=== PATIENT | female | born 1930 | race Two or more races ===

== ENCOUNTER 2018-03-26 14:37 | Outpatient (CLI) | payer OTHER ==
[~2018-03-26 14:37] MED LIST: DICLOFENAC SODI50 MG PO
== END 2018-03-26 14:59 | disposition home or self-care (01) ==
LOC: MAMO-SONO 14:37
DX: Z12.31 Encounter for screening mammogram for malignant neoplasm of breast (principal); Z87.898 Personal history of other specified conditions; C50.212 Malignant neoplasm of upper-inner quadrant of left female breast

== ENCOUNTER 2018-05-28 08:52 | Outpatient (CLI) | payer OTHER | END 2018-05-28 08:54 | disposition home or self-care (01) | LOC: SONOGRAMA 08:52 | DX: R74.0 Nonspecific elevation of levels of transaminase and lactic acid dehydrogenase [LDH] (principal); E03.8 Other specified hypothyroidism; E23.3 Hypothalamic dysfunction, not elsewhere classified; R64 Cachexia ==

== ENCOUNTER → 2019-11-06 | Outpatient (CLI) | payer OTHER | END | disposition home or self-care (01) | LOC: RAD 14:41 | DX: C50.212 Malignant neoplasm of upper-inner quadrant of left female breast (principal) ==

== ENCOUNTER 2019-11-14 11:17 | Outpatient (CLI) | payer OTHER | END 2019-11-14 11:18 | disposition home or self-care (01) | LOC: MAMO-SONO 11:17 | PROVIDERS: ATTEND Surgery Surgical Oncology | DX: Z12.31 Encounter for screening mammogram for malignant neoplasm of breast (principal); Z87.898 Personal history of other specified conditions; C50.212 Malignant neoplasm of upper-inner quadrant of left female breast ==

== ENCOUNTER 2020-06-30 10:30 | Emergency (ER) | payer OTHER ==
[~2020-06-30] VITALS: Ht 172.7 cm; Wt 49.0 kg
[2020-06-30] MEDS ORDERED: SYNTHROID50 MCG (10:56)
== END 2020-06-30 14:19 | disposition home or self-care (01) ==
LOC: ER 10:30
DX: S42.252A Displaced fracture of greater tuberosity of left humerus, initial encounter for closed fracture (principal); W18.09XA Striking against other object with subsequent fall, initial encounter; Y93.89 Activity, other specified; Y92.012 Bathroom of single-family (private) house as the place of occurrence of the external cause; Y99.8 Other external cause status

== ENCOUNTER 2021-07-06 10:21 | Inpatient (IN) | payer OTHER ==
[~2021-07-06] VITALS: Ht 144.8 cm; Wt 80.7 kg
[~2021-07-06 10:21] MED LIST changes: +SYNTHROID50 MCG
[2021-07-11] MEDS ORDERED: ELIQUIS2.5 MG PO (08:36)
[2021-07-11] MEDS ORDERED: ULTRACET PO (08:36)
== END 2021-07-11 19:40 | disposition home or self-care (01) | DRG 481 ==
LOC: ER 10:21 → SURH 19:42
PROVIDERS: ADMIT Orthopaedic Surgery; ATTEND Orthopaedic Surgery
PROC: 0QS706Z Reposition Left Upper Femur with Intramedullary Internal Fixation Device, Open Approach (ICD-10-PCS; principal; 2021-07-07 08:30)
DX: S72.452A Displaced supracondylar fracture without intracondylar extension of lower end of left femur, initial encounter for closed fracture (principal); D62 Acute posthemorrhagic anemia; M81.0 Age-related osteoporosis without current pathological fracture; R82.71 Bacteriuria; E03.8 Other specified hypothyroidism; Z20.822 Contact with and (suspected) exposure to COVID-19